=== PATIENT | male | born 1945 ===

== ENCOUNTER 2017-11-04 12:05 | Outpatient (REF) | payer MEDICARE, SELFPAY ==
[2017-11-04 22:35] LABS: ALT 26 U/L (12-78); Anion Gap 8.2 mmol/L (3-11); BUN 15 mg/dL (7-18); CO2 26.8 mmol/L (21.0-32.0); CREATININE 1.22 mg/dL (0.70-1.30); Calcium 8.5 mg/dL (8.5-10.1); Chloride 104 mmol/L (98-107); Cholesterol 128 mg/dL (50-200); Estimated GFR 58.23 (mL/min/1.73m2); Glucose 99 mg/dL (70-100); HDL Cholesterol 36 mg/dL (40-60); LDL CHOLESTEROL 78 mg/dL (<100); Potassium 4.3 mmol/L (3.5-5.1); Sodium 139 mmol/L (136-145); Triglyceride 123 mg/dL (30-150)
== END 2017-11-04 12:06 ==
LOC: NCHCN 12:05
PROVIDERS: PCP Family Medicine; Visit Provider Family Medicine
DX: I10 Essential (primary) hypertension (principal)
CPT/HCPCS: 80048; 80061; 83721; 84460

== ENCOUNTER 2018-01-22 11:25 | Outpatient (REF) | payer MEDICARE, SELFPAY ==
[2018-01-22 22:21] LABS: Anion Gap 10.3 mmol/L (3-11); CO2 27.7 mmol/L (21.0-32.0); Chloride 101 mmol/L (98-107); Magnesium 1.8 mg/dL (1.8-2.4); Potassium 4.4 mmol/L (3.5-5.1); Sodium 139 mmol/L (136-145)
== END 2018-01-22 11:45 ==
LOC: NCHCN 11:25
PROVIDERS: PCP Family Medicine; Visit Provider Family Medicine
DX: E83.42 Hypomagnesemia (principal)
CPT/HCPCS: 80051; 83735

== ENCOUNTER 2018-03-25 21:22 | Outpatient (REF) | payer MEDICARE, SELFPAY ==
[2018-03-25 22:00] LABS: Anion Gap 8.4 mmol/L (3-11); BUN 28 mg/dL (7-18); CO2 27.6 mmol/L (21.0-32.0); CREATININE 1.39 mg/dL (0.70-1.30); Calcium 8.7 mg/dL (8.5-10.1); Chloride 102 mmol/L (98-107); Estimated GFR 50.09 (mL/min/1.73m2); Glucose 106 mg/dL (70-100); Potassium 4.2 mmol/L (3.5-5.1); Sodium 138 mmol/L (136-145)
== END 2018-03-25 21:42 ==
LOC: NCHCN 21:22
PROVIDERS: PCP Family Medicine; Visit Provider Family Medicine
DX: I50.9 Heart failure, unspecified (principal)
CPT/HCPCS: 80048

== ENCOUNTER 2018-04-22 21:11 | Outpatient (REF) | payer MEDICARE, SELFPAY ==
[2018-04-22 21:41] LABS: Anion Gap 7.9 mmol/L (3-11); BUN 30 mg/dL (7-18); CO2 28.1 mmol/L (21.0-32.0); CREATININE 1.75 mg/dL (0.70-1.30); Calcium 8.8 mg/dL (8.5-10.1); Chloride 105 mmol/L (98-107); Glucose 101 mg/dL (70-100); Potassium 4.7 mmol/L (3.5-5.1); Sodium 141 mmol/L (136-145)
== END 2018-04-22 21:31 ==
LOC: NCHCN 21:11
PROVIDERS: PCP Family Medicine; Visit Provider Family Medicine
DX: I42.0 Dilated cardiomyopathy (principal)
CPT/HCPCS: 80048

== ENCOUNTER 2018-04-29 23:04 | Outpatient (REF) | payer MEDICARE, SELFPAY ==
[2018-04-30 01:07] LABS: Anion Gap 12.2 mmol/L (3-11); BUN 39 mg/dL (7-18); CO2 23.8 mmol/L (21.0-32.0); CREATININE 1.83 mg/dL (0.70-1.30); Calcium 8.6 mg/dL (8.5-10.1); Chloride 106 mmol/L (98-107); Estimated GFR 36.47 (mL/min/1.73m2); Glucose 115 mg/dL (70-100); Potassium 4.4 mmol/L (3.5-5.1); Sodium 142 mmol/L (136-145)
== END 2018-04-29 23:24 ==
LOC: NCHCN 23:04
PROVIDERS: PCP Family Medicine; Visit Provider Family Medicine
DX: I50.9 Heart failure, unspecified (principal)
CPT/HCPCS: 80048